=== PATIENT | female | born 1965 | race Caucasian/White ===

== ENCOUNTER 2025-01-06 15:13 | Emergency (ER) | payer SELFPAY ==
[2025-01-06 15:19] VITALS: BP 143/91
--- NOTE | 2025-01-06 17:23 | ED.GENMED ---
History of Present Illness
General
Chief Complaint: Musculo-Skeletal Complaint
Source: patient
Exam Limitations: none
Time Seen by Provider: 01/06/25 16:43
Nursing documentation reviewed up to this point in time: agreed with
History of Present Illness
History of Present Illness:
Patient is a 59-year-old female presenting to the emergency department with right shoulder pain. She states that yesterday at work she was lifting a large crate of eggs when she felt a pop in her right shoulder. She reports a dull, aching pain
since, worse with certain movements. She denies any radiation down her arm. Patient denies any tingling in right upper extremity. No other concerns today.
Past History
Past History
ED Past Medical History: HTN and Hypothyroidism
Social History
Tobacco: Non-smoker
Alcohol: Former
Personal: Single
Living: with roommate
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
Review of Systems
Review of Systems
Allergies reviewed?: Yes
All Other Systems: ROS reviewed and negative except as documented in HPI and ROS
Phy Exam
Physical Exam
Physical Exam:
Vitals: Mildly hypertensive, otherwise vital signs stable. Afebrile
General: Patient is well appearing, no acute distress
Skin: Warm and dry, no rashes or lesions
Head: Normocephalic, atraumatic
Throat: Protecting airway
Neck: Normal ROM, no cervical spine tenderness
Cardiac: Regular rate
Pulm: No apparent respiratory distress
Abdomen: Nondistended
Extremities: Mild reproducible tenderness to anterior aspect of right shoulder near insertion of rotator cuff muscles. No obvious deformity. No edema or ecchymoses of right shoulder. RUE neurovascularly intact. Full active ROM in right shoulder
Neuro: Grossly intact
Psychiatric: Normal affect.
Course
Orders/Labs/Results
Orders:
Orders
01/06/25 15:24
CR Shoulder, Trauma - Right Urgent
Comment:
Reason For Exam: injury
01/06/25 17:03
Sling Right-Treatment ONCE
Vital Signs
Initial and Last Documented VS:
Initial Vital Signs
Temp Pulse Resp BP Pulse Ox
98.8 F 81 18 143/91 98
01/06/25 15:19 01/06/25 15:19 01/06/25 15:19 01/06/25 15:19 01/06/25 15:19
Last Documented Vital Signs
Temp Pulse Resp BP Pulse Ox
98.8 F 81 18 143/91 98
01/06/25 15:19 01/06/25 15:19 01/06/25 15:19 01/06/25 15:19 01/06/25 15:19
MDM/Problems Addressed
Differential Diagnosis Includes:
Not limited to: rotator cuff muscle strain/tear, tendonitis, shoulder dislocation, etc
MDM/Problems Addressed:
59 year-old female with right shoulder pain after injury yesterday while lifting heavy objects at work. No associated neck pain or numbness/tingling in right arm. Vitals and physical exam as above. Patient has minimal tenderness to anterior right
shoulder near rotator cuff insertion site. No obvious deformity of right shoulder. No edema. Neurovascularly intact. X-ray of right shoulder without acute fracture or dislocation. Ultimately � suspect likely shoulder/rotator cuff muscle strain or
tendonitis. Do not suspect infectious process. Will place shoulder sling and advise limiting heavy lifting for one to two weeks as injury heals. Ortho referral given for further evaluation as needed. Patient also advised to follow up with Workmen�s
Comp. Return precaution discussed. Patient comfortable with plan.
Chronic conditions affecting care:
N/A
Acute Exacerbation and/or Progression of Chronic Illness:
N/A
*Radiology
Radiology exam reviewed: preliminary read by ED provider (Right shoulder xray reviewed by me - no acute fracture) and radiology read reviewed
*Pulse Oximetry
Patient hypoxic: no
*EKG
Interpreted by ED Provider?: NA
*Staple Shear Operator Interpretation
Rate: Staple Shear Operator- N/A
*Critical Care Note
Total Time (30-74mins, 75-104mins- exclusive of procedures): Not Applicable
ED Attending Note
-
Portions of this chart may have been created with voice recognition software.� Occasional wrong word or��sound alike� substitutions may have occurred due to the inherent limitations of voice recognition software.
Discharge Plan
Departure
Patient Disposition: Home (Routine Discharge)
Date of Disposition: 01/06/25
Time of Disposition: 17:04
Patient with high blood pressure during this ER visit?: Yes
Condition: Good
Covid-19: Not Applicable
Discharge Problem:
Injury of right shoulder
Instructions: Shoulder pain - ED discharge instructions, BLOOD PRESSURE
Referrals:
Daisy Tobin DO [Family Provider] -
Oscar Howard MD [Active] - As needed
Stand Alone Forms: Return to Work
Activity Restrictions/Additional Instructions:
RETURN TO THE EMERGENCY DEPARTMENT WITH ANY SEVERE PAIN IN RIGHT SHOULDER, NUMBNESS/TINGLING OR WEAKNESS IN RIGHT UPPER EXTREMITY, WORSENING OF CURRENT SYMPTOMS, OR ANY OTHER CONCERNS
- As discussed�your x-ray showed no evidence of fracture or dislocation. I suspect you likely sustained a sprain of your shoulder/rotator cuff muscles
- Keep your arm in a shoulder sling although move your shoulder frequently throughout the day to prevent frozen shoulder.
- Take Tylenol and/or Motrin as needed for pain. You can apply ice to right shoulder
- Follow-up with your Workmen's Comp. physician for further evaluation/management and possible Ortho follow-up as needed for further imaging. I have provided the name for an orthopedic above if needed.
Monitor your symptoms closely and return to the emergency department with any acute worsening/new symptoms or any other concerns
Interventions
Interventions:
*Risk Screen - Suicide Last Done: 01/06/25 15:19
*General Assessment Last Done: 01/06/25 15:19
*Neglect/Abuse Screening Last Done: 01/06/25 15:19
*ED- Fall Risk Assessment Last Done: 01/06/25 15:19
*ED COVID-19 Vaccine History Last Done: 01/06/25 15:19
*Nursing Disposition Last Done: 01/06/25 17:24
ED-Musculoskeletal Assessment Last Done: 01/06/25 15:44
Discharge Date and Time
Discharge Date/Time: 01/06/25 17:25
Print Language: WELSH
== END 2025-01-06 17:25 | disposition home or self-care (01) ==
LOC: EMR 15:13
PROVIDERS: EMERGENCY PHYSICIAN Emergency Medicine; FAMILY PHYSICIAN Family Medicine
DX: S49.91XA Unspecified injury of right shoulder and upper arm, initial encounter (principal); M25.511 Pain in right shoulder; X50.0XXA Overexertion from strenuous movement or load, initial encounter; Y93.89 Activity, other specified; Y92.89 Other specified places as the place of occurrence of the external cause; Y99.0 Civilian activity done for income or pay; I10 Essential (primary) hypertension; E03.9 Hypothyroidism, unspecified; R56.9 Unspecified convulsions; J45.909 Unspecified asthma, uncomplicated; K57.90 Diverticulosis of intestine, part unspecified, without perforation or abscess without bleeding; F41.9 Anxiety disorder, unspecified; F32.A Depression, unspecified; Z91.018 Allergy to other foods
CPT/HCPCS: 99283; 73030